=== PATIENT | female | born 1950 | race Caucasian/White ===

== ENCOUNTER 2017-04-09 06:40 | Day surgery (SDC) | payer OTHER ==
[2017-04-05 12:10] VITALS: BMI 31.2
--- NOTE | 2017-04-09 07:33 | HP ---
History & Physical Update - History History: No Change - Physical Physical: No Change - Assessment Assessment: No Change - Plan Plan: No Change (Consent signed and witnessed, for hysteroscopy, possible polypectomy D&C)
[2017-04-09] MEDS ORDERED: LIDOCAINE HCL/PF 2% SDV 5ML VIAL ONE (07:49)
[2017-04-09] MEDS ORDERED: MIDAZOLAM HCL 2 MG/2 ML SINGLE DOSE VIAL ONE (07:50)
[2017-04-09] MEDS ORDERED: PROPOFOL 20 ML ONE ×2 (07:50)
[2017-04-09] MEDS ORDERED: KETOROLAC TROMETHAMINE 30 MG/1 ML VIAL ONE (08:22)
[2017-04-09] MEDS ORDERED: ONDANSETRON 4 MG/2 ML VIAL ONE (08:22)
[2017-04-09] MEDS ORDERED: ACETAMINOPHEN 325 MG TABLET (FP) PO PRN (08:51)
[2017-04-09] MEDS ORDERED: ONDANSETRON 4 MG/2 ML VIAL IVPUSH PRN (08:51)
[2017-04-09] MEDS ORDERED: oxyCODONE HCL 5 MG TABLET PO PRN ×2 (08:51→11:14)
[2017-04-09] MEDS ORDERED: ACETAMINOPHEN INJECTION 100 ML IVPB ONE (09:25)
[2017-04-09] MEDS ORDERED: ACETAMINOPHEN 1000 MG/100 ML VIAL (NON FORMULARY) IVPB ONE ×2 (09:30→10:22)
[2017-04-09 09:57] VITALS: TEMP 97.9
[2017-04-09 10:53] VITALS: BP 108/65; PULSE 67
--- NOTE | 2017-04-09 11:12 | OP ---
Operative Note - Note: Operative Date: 04/09/17 Pre-Operative Diagnosis: 67yo P2 postmenopausal with thickened Endometrial lining Operation: Hysteroscopy, Polypectomy, Dialation, Curettage. TruClear ststem used Findings: Cervical 3cm polyp Atrophic Endometrium Post-Operative Diagnosis: Same as Pre-op (Cervical/Lower uterine segment polyp) Surgeon: Elvira Alexandra Anesthesiologist/SPECIAL PROCEDURE TECHNOLOGIST: Daisy Forbes Anesthesia: MAC Specimens Removed: 1.Lower uterine segment polyp. 2.Endometrial curettings Estimated Blood Loss (mls): 0 Drains & Tubes with Location: Fluid defficit 190cc Drains, Volume Out (mls): 100 Fluid Volume Replaced (mls): 200 Operative Report Dictated: Yes
[2017-04-09] MEDS ORDERED: IBUPROFEN 600 MG TABLET (FP) PO PRN (11:14)
[2017-04-09] MEDS ORDERED: IBUPROFEN 800 MG/8 ML IJ IVPB PRN (11:14)
[2017-04-09] MEDS ORDERED: ONDANSETRON 4 MG/2 ML VIAL IVPB PRN (11:14)
[2017-04-09] MEDS ORDERED: ELECTROLYTE-148 SOLN 1,000 ML IV SCH (11:15)
--- NOTE | 2017-04-10 13:20 | PATH ---
Surgical Pathology Report Patient Name: MATHEUS COELHO [facility]. Rec. #: [id number] /Age/Gender: 1950 (Age: 67) / F Account: [id number] Location: [facility] SURGICAL Taken: 04/09/2017 Received: 04/09/2017 Reported: 04/10/2017 Physicians: Elvira Alexandra M.D. Specimen(s) Received A: ENDOCERVICAL POLYP B: ENDOMETRIAL CURETTINGS Clinical History Endometrial thickening Final Diagnosis A. ENDOCERVICAL POLYP, POLYPECTOMY: FRAGMENTS OF ENDOCERVICAL POLYP. B. ENDOMETRIUM, CURETTAGE: SCANT FRAGMENTS OF ATROPHIC ENDOMETRIUM. FRAGMENTS OF BENIGN SMOOTH MUSCLE. FRAGMENTS OF BENIGN ENDOCERVICAL TISSUE. Electronically Signed Raimundo Montalvo M.D. Gross Description A. Received in formalin labelled "endocervical polyp" is a 0.5 cm greatest dimension aggregate of mead tissue fragments. Totally submitted in one cassette. B. Received in formalin labelled "endometrial curetting" is a 1.5 x 1.5 x 0.3 cm aggregate of hemorrhagic and mucinous material. Totally submitted in one cassette. [facility]/04/09/2017 [facility]/04/09/2017
--- NOTE | 2017-04-11 08:45 | OP ---
DATE OF OPERATION: 04/09/2017 PREOPERATIVE DIAGNOSIS: A 67-year-old, para 2, postmenopausal with thickened endometrial lining. OPERATION: Hysteroscopy, polypectomy, and dilation and curettage using TruClear system. FINDINGS: Cervical 3-cm polyp and atrophic fundal endometrium. POSTOPERATIVE DIAGNOSES: A 67-year-old, para 2, postmenopausal with thickened endometrial lining and cervical lower uterine segment, 3-cm polyp. SURGEON: Elvira Alexandra MD ANESTHESIOLOGIST: Daisy Forbes MD ANESTHESIA: MAC. SPECIMENS REMOVED: 1. Lower uterine segment polyp. 2. Endometrial curettings. ESTIMATED BLOOD LOSS: Zero. DESCRIPTION OF OPERATIVE PROCEDURE: After assuring informed consent and explaining all risks, benefits, and alternatives to the patient, consent was signed and witnessed, and patient was brought to the operating room where she was placed in dorsal lithotomy position. Perineum and vagina were prepped and draped in sterile fashion. The TruClear hysteroscope was primed and prepared to be used. Negrete speculums were inserted into the vagina. Anterior cervical lip was articulated with a single-tooth tenaculum, and cervix was gradually dilated with Spann dilators increasing in size up to size 17 gauge. Hysteroscope was introduced into the uterus. Bilateral ostia were visualized, and fundus was found to be atrophic. However, lower uterine segment cervix had a sessile, 3-cm, complex-looking polyp which was resected using TruClear device through 5-mm scope. The resection took 1 minute. Subsequently, the hysteroscope was removed and sharp curettage was performed and endometrial curettings were collected in a separate specimen. Subsequently, all instruments were removed from the vagina, as well as the sponges. Estimated blood loss: 0 mL. Fluid deficit was 190 mL. Patient drained 100 mL of urine and received 200 mL of IV fluids. She was then brought stable to the recovery room after sponge and instrument count was found to be correct x2. Varsha [id number]
== END 2017-04-09 10:50 | disposition home or self-care (01) ==
LOC: JASU-SURG 06:40
PROVIDERS: ATTEND Obstetrics & Gynecology
PROC: 0UB98ZX Excision of Uterus, Via Natural or Artificial Opening Endoscopic, Diagnostic (ICD-10-PCS; principal; 2017-04-09 08:00)
PROC: 0UDB8ZX Extraction of Endometrium, Via Natural or Artificial Opening Endoscopic, Diagnostic (ICD-10-PCS; 2017-04-09 08:00)
DX: N84.0 Polyp of corpus uteri (principal); N95.8 Other specified menopausal and perimenopausal disorders
CPT/HCPCS: 88305-TC; 94760